=== PATIENT | female | born 1995 | race Caucasian/White ===

== ENCOUNTER → 2017-03-17 | Day surgery (SDC) | payer BC ==
[~2017-03-17] MED LIST: FLU VACC QS2017-18 36 mo. & older 0.5 ML SYRINGE IM ONE
[2017-03-17 23:59] VITALS: BMI 25.7
[2017-03-18 00:29] LABS: Amnisure Test No Membranes Rupture (No Rupture)
--- NOTE | 2017-03-18 09:07 | PRG ---
DATE OF SERVICE: 03/17/2017 CHIEF COMPLAINT: Questionable leakage of fluid. HISTORY OF PRESENT ILLNESS: At the time of presentation, Ms. Jaeger is a 21-year-old 2, para 1 female at 40 weeks and [address] Williamson for care. The patient presents with c omplaints of questionable leakage of fluid, 1 episode at approximately 11:00 p.m. She has not had a ny since then. She reports good movement, occasional contractions. No vaginal bleeding. The patient was actually scheduled for induction of labor on 03/22/2017. Her cervix was examined in e office on or Sunday and was noted to be 4 cm dilated and this is unchanged on labor and d elivery per the nurse who checked after an AmniSure was obtained. REVIEW OF SYSTEMS: Limited review of systems per HPI. HISTORY: Please see labor and delivery admission record included by reference. PHYSICAL EXAMINATION: VITAL SIGNS: Temperature 135/94, repeat of 120/76, pulse 79, and temperature 97.6. GENERAL: Nontoxic appearing female in no acute distress. OBSTETRIC: heart tracing is category 1. Tocodynamometer shows occasional irregular contracti ons. GENITOURINARY: Cervix is , -2, and this is unchanged over 1 hour. ASSESSMENT AND PLAN: 1. Term intrauterine with category 1 tracing. 2. Negative evaluation for rupture of membranes. DISPOSITION: Patient is discharged to home with routine obstetric precautions and encouraged to emily p her appointment for induction. The patient is instructed that should she experience regular contr actions even if they are not painful or should she break her bag water, she should present immediate ly to [facility]
== END ==
LOC: L&D/OP 23:31
PROVIDERS: ATTEND Student in an Organized Health Care Education/Training Program
DX: O26.893 Other specified pregnancy related conditions, third trimester (principal); Z88.0 Allergy status to penicillin; Z79.899 Other long term (current) drug therapy; Z3A.40 40 weeks gestation of pregnancy
CPT/HCPCS: 84112

== ENCOUNTER 2017-03-19 07:39 | Inpatient (IN) | payer BC ==
[2017-03-19 08:13] VITALS: BMI 25.7
[2017-03-19] MEDS ORDERED: FLU VACC QS2017-18 36 mo. & older 0.5 ML SYRINGE IM ONE (08:30)
[2017-03-19] MEDS: Lactated Ringer's 1,000 ML IV SCH ×2 (08:53→21:42)
[2017-03-19] MEDS ORDERED: Ibuprofen 800 MG TAB PO PRN (09:06)
[2017-03-19] MEDS ORDERED: Ondansetron HCl/PF 4 MG/2 ML Vial IVP PRN ×2 (09:06→18:38)
[2017-03-19] MEDS ORDERED: Diphenoxylate HCl/Atropine Tablet PO PRN (09:06)
[2017-03-19] MEDS ORDERED: Lidocaine 1% (PF) 30 ML VIAL SC PRN (09:06)
[2017-03-19] MEDS ORDERED: Misoprostol 200 MCG TAB PR PRN (09:06)
[2017-03-19] MEDS ORDERED: Carboprost 250 MCG/ML AMP IM PRN (09:06)
[2017-03-19] MEDS ORDERED: Lactated Ringer's 1,000 ML IV SCH (09:15)
[2017-03-19 09:39] LABS: Hematocrit 40.3 % (36.0-47.0); Mean Platelet Volume 10.3 fL (7.4-10.4); Red Blood Cell (RBC) Count 4.21 mill/uL (4.20-5.40); White Blood Cell (WBC) Count 10.2 thou/uL (4.8-10.8)
--- NOTE | 2017-03-19 12:53 | PDOC.LDHP ---
Labor and Delivery H&P Chief complaint: contractions HPI: 21yo at 40w3d by LMP here for painful contractions since early this am. No LOF VB. Current gestational age (weeks): 40 Due date: 03/15/17 Dating criteria: last menstrual period Grav: 2 Para: 1 Current complications: none Abnormal US findings: No Past Medical History: hyperthyroidism Current medications: pre- vitamins, other (PTU 50 BID) Previous surgical history: none Allergies/Adverse Reactions: Allergies Allergy/AdvReac Type Severity Reaction Status Date / Time Penicillins Allergy Verified 03/18/17 00:00 Social history: none - Physical Exam Vital signs reviewed and normal: yes General: NAD, breathing through contractions Heart: RRR Lungs: CTAB Abdomen: gravid Extremeties: no edema FHT: category 1 [place] contractions every: q4min - Vaginal Exam cm dilated: 7 Effacement: 90% Station: -1 (arom mod mec) - OB Labs Blood type: O RH: positive Antibody Screen: negative HIV: negative RPR: negative HEPSAg: negative 1 hour GCT: negative GBS: negative Urine drug screen: negative Rubella: immune - Assessment L&D Assessment: term patient in labor - Plan Plan: admit to L&D, labor augmentation if indicated, informed consent obtained, anesthesia consult for pain management
[2017-03-19] MEDS ORDERED: LR 500 ML/Oxytocin 10 units 500 ML ONE (14:21)
[2017-03-19] MEDS ORDERED: LR 500 ML/Oxytocin 10 units 500 ML IV SCH (14:30)
[2017-03-19] MEDS: LR / Pitocin 40 units/1000 ml 1,000 ML IV PRN ×2 (16:00→18:05)
[2017-03-19 16:12] LABS: CO2 Tension (PaCO2) 40.6 mmHg (44.0-56.0)
--- NOTE | 2017-03-19 17:04 | PDOC.OPDEL ---
OB Operative/Delivery Note Delivery Dr/Surgeon: Teri Assist: n/a Pre-Delivery Diagnosis: active labor Procedure/Post Delivery Dx: spontaneous vaginal delivery Weeks gestation: 40 Anesthesia: none - Findings A Sex: female Weight: 6 lb 13 oz - 1 min: 9 - 5 min: 9 - Additional Findings/Plan Placenta delivered: spontaneous Repaired Obstetrical Laceration: none Estimated blood loss: 200 Post delivery plan: routine recovery
[2017-03-19] MEDS ORDERED: LR / Pitocin 40 units/1000 ml 1,000 ML IV SCH (18:38)
[2017-03-19] MEDS ORDERED: Adacel (T-DAP) 0.5 ML VIAL IM ONE (18:38)
[2017-03-19] MEDS ORDERED: HYDROcodone/Acetaminophen 5/325 mg Tablet PO PRN ×2 (18:38)
[2017-03-19] MEDS ORDERED: Zolpidem Tartrate 5 MG TAB PO PRN (18:38)
[2017-03-19] MEDS ORDERED: Lanolin Ointment 7 GM TUBE TOP PRN (18:38)
[2017-03-19] MEDS ORDERED: Preparation H Ointment 28 GM TUBE PR PRN (18:38)
[2017-03-19] MEDS ORDERED: diphenhydrAMINE 25 MG CAP PO PRN (18:38)
[2017-03-19] MEDS ORDERED: Benzocaine/Menthol 20-0.5% 60 ML CAN TOP PRN (18:38)
[2017-03-19] MEDS ORDERED: Bisacodyl 10 MG SUPP PR PRN (18:38)
[2017-03-19] MEDS ORDERED: Milk Of Magnesia 30 ML UDCUP PO PRN (18:38)
[2017-03-19] MEDS: Ferrous Sulfate 325 MG TAB PO SCH (21:42)
[2017-03-19] MEDS: Propylthiouracil 50 MG TAB PO SCH (21:54)
[2017-03-19] MEDS: Docusate (Surfak) 240 MG CAP PO SCH (21:54)
[2017-03-19] MEDS: Ibuprofen 800 MG TAB PO SCH (21:54)
[2017-03-20] MEDS: Ibuprofen 800 MG TAB PO SCH ×3 (06:11→21:54)
[2017-03-20] MEDS: Prenatal Vitamin 1 TAB PO SCH (10:14)
[2017-03-20] MEDS: Ferrous Sulfate 325 MG TAB PO SCH ×2 (10:14→17:36)
[2017-03-20] MEDS: Docusate (Surfak) 240 MG CAP PO SCH ×2 (10:14→21:54)
[2017-03-20] MEDS: Propylthiouracil 50 MG TAB PO SCH ×2 (10:15→21:54)
--- NOTE | 2017-03-20 10:37 | PDOC.PP ---
Post Progress Note Post Day #: 1 PO intake tolerated: yes Flatus: yes Ambulation: yes Vital Signs (12 hours) Temp Pulse Resp BP 03/20/17 07:51 98.1 F 70 20 110/60 03/20/17 04:38 98.3 F 72 18 112/66 03/20/17 01:10 98.1 F 82 18 108/67 Weight Weight 132 lb - Physical Examination General: NAD Cardiovascular: RRR Respiratory: clear to auscultation bilaterally Abdominal: no distention, appropriately TTP Fundus firm & at: umb Extremities: negative homans (B) Neurological: no gross focal deficits Psychiatric: normal affect Result Diagrams: 03/19/17 09:24 Additional Labs: Post Labs Hep Bs Antigen Non-Reactive S/CO (NonReactive) 03/19/17 09:24 (1) Term delivered Code(s): O80 - ENCOUNTER FOR FULL-TERM UNCOMPLICATED DELIVERY Status: Acute - Assessment/Plan VSSAF Doing well lochia < menses Cont PTU for hyperthyroidism Rh pos RImm Cont PP care.
[2017-03-21] MEDS: Ibuprofen 800 MG TAB PO SCH (06:02)
[2017-03-21 08:21] VITALS: BP 112/71; TEMP 98.1
[2017-03-21] MEDS: Prenatal Vitamin 1 TAB PO SCH (08:54)
[2017-03-21] MEDS: Propylthiouracil 50 MG TAB PO SCH (08:54)
[2017-03-21] MEDS: Docusate (Surfak) 240 MG CAP PO SCH (08:54)
[2017-03-21] MEDS: Ferrous Sulfate 325 MG TAB PO SCH (08:56)
--- NOTE | 2017-03-21 09:19 | PDOC.PP ---
Post Progress Note Post Day #: 2 PO intake tolerated: yes Flatus: yes Ambulation: yes Vital Signs (12 hours) Temp Pulse Resp BP 03/21/17 08:20 98.1 F 68 20 112/71 Weight Weight 132 lb - Physical Examination General: NAD Cardiovascular: RRR Respiratory: clear to auscultation bilaterally Abdominal: appropriately TTP Fundus firm & at: umb-2 Extremities: negative homans (B) Neurological: no gross focal deficits Psychiatric: normal affect Result Diagrams: 03/19/17 09:24 Additional Labs: Post Labs Hep Bs Antigen Non-Reactive S/CO (NonReactive) 03/19/17 09:24 (1) Term delivered Code(s): O80 - ENCOUNTER FOR FULL-TERM UNCOMPLICATED DELIVERY Status: Acute - Assessment/Plan Doing well, no issues DC home fu 6wk
== END 2017-03-21 13:13 | disposition home or self-care (01) | DRG 775 ==
LOC: L&D/OP 07:39 → L&D 09:15 → 3SW 18:37
PROVIDERS: ADMIT Student in an Organized Health Care Education/Training Program; ATTEND Student in an Organized Health Care Education/Training Program
PROC: 10E0XZZ Delivery of Products of Conception, External Approach (ICD-10-PCS; principal; 2017-03-19)
PROC: 10907ZC Drainage of Amniotic Fluid, Therapeutic from Products of Conception, Via Natural or Artificial Opening (ICD-10-PCS; 2017-03-19)
PROC: 4A0HXCZ Measurement of Products of Conception, Cardiac Rate, External Approach (ICD-10-PCS; 2017-03-19)
DX: O77.0 Labor and delivery complicated by meconium in amniotic fluid (principal); O99.284 Endocrine, nutritional and metabolic diseases complicating childbirth; O76 Abnormality in fetal heart rate and rhythm complicating labor and delivery; E03.9 Hypothyroidism, unspecified; Z37.0 Single live birth; Z3A.40 40 weeks gestation of pregnancy
CPT/HCPCS: 36415; 82805; 85027; 86780; 87340; J0595; J2001; J7120